=== PATIENT | female | born 1940 | race Hispanic/Latino ===

== ENCOUNTER 2024-01-18 11:04 | Inpatient (IN) | payer MEDICARE, OTHER ==
[2024-01-18 12:16] LABS: #Basophils 0.01 10x3/uL (0.0-0.2); #Eosinophils 0.01 10x3/uL (0.0-0.5); #Monocytes 0.68 10x3/uL (0.0-1.1); #Neutrophils 11.63 10x3/uL (1.5-8.4); %Basophils 0.1 % (0.0-2.0); %Eosinophils 0.1 % (0.0-6.0); %Lymphocytes 5.3 % (18.0-47.0); %Monocytes 5.2 % (0.0-10.0); %Neutrophils 88.8 % (40.0-75.0); Hematocrit 41.8 % (34.9-44.5); Hemoglobin 13.7 g/dL (12.0-15.5); Mean Corpuscular HGB CONC 32.8 g/dL (32.0-36.0); Mean Corpuscular Hemoglobin 30.2 pg (27.0-33.0); Mean Corpuscular Volume 92.1 fL (81.6-98.3); Mean Platelet Volume 11.7 fL (7.4-10.4); Platelet Count 183 10x3/uL (150-450); RBC Distribution Width 13.2 % (11.5-14.5); Red Blood Cell (RBC) Count 4.54 10x6/uL (3.90-5.03); White Blood Cell (WBC) Count 13.1 10x3/uL (3.5-10.5)
[2024-01-18 12:19] LABS: ALT (SGPT) 60 U/L (8-55); AST (SGOT) 56 U/L (5-34); Albumin 3.7 g/dL (3.4-4.8); Alkaline Phosphatase 79 U/L (40-110); Anion Gap 18 mmol/L (10-20); BUN (Urea Nitrogen) 24 mg/dL (9.8-20.1); Bilirubin, Total 0.5 mg/dL (0.2-1.2); Calc. Creatinine Clearance 0 mL/min (70-130); Calcium 8.9 mg/dL (7.8-10.44); Carbon Dioxide 18 mmol/L (23-31); Chloride 106 mmol/L (98-107); Estimated GFR 71; Glucose 306 mg/dL (83-110); Lipase 6 U/L (8-78); Magnesium 1.3 mg/dL (1.6-2.6); Potassium 3.7 mmol/L (3.5-5.1); Protein, Total 6.7 g/dL (5.8-8.1); Sodium 138 mmol/L (136-145)
[2024-01-18] MEDS ORDERED: Magnesium 2 GM/50 ML BAG (IN WATER) ONE (12:39)
[2024-01-18] MEDS ORDERED: Iopamidol 300 61% 100 ML VIAL FS ONE (14:50)
[2024-01-18] MEDS ORDERED: Glucagon 1 MG/ML KIT IM PRN (15:27)
[2024-01-18] MEDS ORDERED: Dextrose 5% in Water 1,000 ML IV PRN (15:27)
[2024-01-18] MEDS ORDERED: Ondansetron PF 4 MG/2 ML Vial IVP PRN (15:27)
[2024-01-18] MEDS ORDERED: Dextrose 50% Abboject 50 ML SYRINGE SLOW IVP PRN (15:27)
[2024-01-18] MEDS: Insulin Lispro 100 UNIT/ML 10 ML VIAL SC PRN (18:11)
[2024-01-18 18:30] VITALS: BMI 23.6
[2024-01-18] MEDS: Donepezil HCl 5 MG TAB PO SCH (21:57)
[2024-01-18] MEDS: Oseltamivir 6 MG/ML ORAL SUSP PO SCH (22:36)
[2024-01-19 04:26] LABS: #Basophils 0.01 10x3/uL (0.0-0.2); #Eosinophils 0.02 10x3/uL (0.0-0.5); #Monocytes 0.73 10x3/uL (0.0-1.1); %Basophils 0.1 % (0.0-2.0); %Eosinophils 0.3 % (0.0-6.0); %Lymphocytes 20.3 % (18.0-47.0); %Monocytes 10.8 % (0.0-10.0); %Neutrophils 68.1 % (40.0-75.0); Hematocrit 39.8 % (34.9-44.5); Hemoglobin 13.4 g/dL (12.0-15.5); Mean Corpuscular HGB CONC 33.7 g/dL (32.0-36.0); Mean Corpuscular Hemoglobin 30.9 pg (27.0-33.0); Mean Corpuscular Volume 91.7 fL (81.6-98.3); Mean Platelet Volume 11.7 fL (7.4-10.4); Platelet Count 179 10x3/uL (150-450); RBC Distribution Width 13.3 % (11.5-14.5); Red Blood Cell (RBC) Count 4.34 10x6/uL (3.90-5.03); White Blood Cell (WBC) Count 6.8 10x3/uL (3.5-10.5)
[2024-01-19] MEDS: Oseltamivir 6 MG/ML ORAL SUSP PO SCH (04:33)
[2024-01-19 04:37] LABS: Anion Gap 16 mmol/L (10-20); BUN (Urea Nitrogen) 17 mg/dL (9.8-20.1); Calc. Creatinine Clearance 60 mL/min (70-130); Calcium 8.1 mg/dL (7.8-10.44); Carbon Dioxide 18 mmol/L (23-31); Chloride 109 mmol/L (98-107); Estimated GFR 87; Glucose 226 mg/dL (83-110); Potassium 3.8 mmol/L (3.5-5.1); Sodium 139 mmol/L (136-145)
[2024-01-19] MEDS: Oseltamivir 75 MG CAP PO SCH (05:19)
[2024-01-19] MEDS: Alogliptin 25 MG TAB PO SCH (09:10)
[2024-01-19] MEDS: Magnesium 2 GM/50 ML(in water) 2 GM in Premix 1 BAG IVPB SCH (09:10)
[2024-01-19] MEDS: PARoxetine 20 MG TAB PO SCH (09:11)
[2024-01-19] MEDS: glipiZIDE 5 MG TAB PO SCH (09:11)
[2024-01-19] MEDS: Memantine 10 MG TAB PO SCH (09:12)
[2024-01-19] MEDS: Enoxaparin 40 MG (0.4 mL) SYRINGE SC SCH (09:12)
[2024-01-19] MEDS: metFORMIN 500 MG TAB PO SCH (09:12)
[2024-01-19] MEDS: Acetaminophen 325 MG TAB PO PRN (09:19)
[2024-01-19 14:46] LABS: ALV-art Gradient 69.965 mmHg (0-20); Actual Bicarbonate (HCO3a) 22.5 mEq/L (22-28); Analyzer IN Cardio CS ER; Base Excess (BEa) -1.4 mEq/L (-2.0 to +3.0); CO2 Tension 35.5 mmHg (35.0-45.0); Calcium, Ionized (arterial) 1.09 mmol/L (1.12-1.30); Carboxyhemoglobin (COHb) 0.3 gm% (0.0-3.0); Hematocrit-ABG 41 % (36.0-47.0); Hemoglobin (Hb) 14.1 g/dL (12.0-16.0); O2 Tension (PaO2), arterial 85.3 mmHg (> 60.0); Potassium - ABG Lab 3.83 mmol/L (3.70-5.30); Puncture Site Right Brachial art
[2024-01-19] MEDS: Sodium Chloride 0.9% 500 ML IV SCH (15:49)
[2024-01-19] MEDS ORDERED: Amitriptyline HCl 25 MG TAB PO SCH (21:00)
[2024-01-19] MEDS ORDERED: Donepezil HCl 5 MG TAB PO SCH (21:00)
[2024-01-19] MEDS ORDERED: Bisacodyl 10 MG SUPP PR PRN (21:47)
[2024-01-19 22:30] LABS: Bilirubin Neg (Negative); Blood, Urine Negative (Negative); Clarity Clear (Clear); Glucose, Urine (Dipstick) 250 mg/dL (Negative); Ketone, Urine Negative (Negative); Leukocyte Negative (Negative); Nitrite Negative (Negative); Protein, Urine (Dipstick) 30 mg/dl (Neg-Trace); Urobilinogen Normal mg/dL (Less than 2)
[2024-01-19] MEDS: Lactated Ringer's 1,000 ML IV SCH (22:50)
[2024-01-19 22:57] LABS: Bacteria/HPF None Seen HPF (None Seen); Mucous/LPF 1+ LPF (<2+); RBC/HPF None Seen HPF (0-3); Squamous Epithelial 0-3 HPF (0-3); WBC/HPF 0-3 HPF (0-3)
[2024-01-20] MEDS: Atorvastatin Calcium 20 MG TAB PO SCH (00:38)
[2024-01-20] MEDS: Acetaminophen 500 MG TAB PO SCH (00:40)
[2024-01-20] MEDS: Senokot S 8.6-50 MG TAB PO SCH (00:41)
[2024-01-20 04:19] LABS: #Basophils 0.01 10x3/uL (0.0-0.2); #Eosinophils 0.12 10x3/uL (0.0-0.5); #Monocytes 0.41 10x3/uL (0.0-1.1); #Neutrophils 3.63 10x3/uL (1.5-8.4); %Basophils 0.2 % (0.0-2.0); %Lymphocytes 30.3 % (18.0-47.0); %Monocytes 6.8 % (0.0-10.0); %Neutrophils 60.2 % (40.0-75.0); Mean Corpuscular HGB CONC 33.3 g/dL (32.0-36.0); Mean Corpuscular Hemoglobin 31.1 pg (27.0-33.0); Mean Corpuscular Volume 93.3 fL (81.6-98.3); Mean Platelet Volume 11.3 fL (7.4-10.4); Platelet Count 141 10x3/uL (150-450); RBC Distribution Width 13.5 % (11.5-14.5); Red Blood Cell (RBC) Count 3.86 10x6/uL (3.90-5.03)
[2024-01-20 04:32] LABS: Anion Gap 12 mmol/L (10-20); BUN (Urea Nitrogen) 10 mg/dL (9.8-20.1); Calc. Creatinine Clearance 66 mL/min (70-130); Calcium 7.5 mg/dL (7.8-10.44); Carbon Dioxide 20 mmol/L (23-31); Chloride 110 mmol/L (98-107); Estimated GFR 89; Glucose 165 mg/dL (83-110); Magnesium 2.2 mg/dL (1.6-2.6); Potassium 3.7 mmol/L (3.5-5.1); Sodium 138 mmol/L (136-145)
[2024-01-20] MEDS: Amitriptyline HCl 25 MG TAB PO SCH (07:53)
[2024-01-20] MEDS: Polyethylene Glycol 3350 17 GM Packet PO SCH (10:10)
[2024-01-20 20:02] LABS: Hemoglobin A1c 7.2 % (4.0-6.0)
[2024-01-21] MEDS: Amitriptyline HCl 25 MG TAB PO PRN (02:44)
[2024-01-21 03:52] LABS: #Basophils 0.01 10x3/uL (0.0-0.2); #Neutrophils 6.86 10x3/uL (1.5-8.4); %Basophils 0.1 % (0.0-2.0); %Lymphocytes 20.3 % (18.0-47.0); %Monocytes 6.3 % (0.0-10.0); Hematocrit 38.6 % (34.9-44.5); Hemoglobin 12.6 g/dL (12.0-15.5); Mean Corpuscular HGB CONC 32.6 g/dL (32.0-36.0); Mean Corpuscular Hemoglobin 30.6 pg (27.0-33.0); Mean Corpuscular Volume 93.7 fL (81.6-98.3); Mean Platelet Volume 11.1 fL (7.4-10.4); Platelet Count 158 10x3/uL (150-450); RBC Distribution Width 13.4 % (11.5-14.5); Red Blood Cell (RBC) Count 4.12 10x6/uL (3.90-5.03); White Blood Cell (WBC) Count 9.5 10x3/uL (3.5-10.5)
[2024-01-21 04:05] LABS: Anion Gap 9 mmol/L (10-20); BUN (Urea Nitrogen) 7 mg/dL (9.8-20.1); Calc. Creatinine Clearance 62 mL/min (70-130); Calcium 8.4 mg/dL (7.8-10.44); Carbon Dioxide 20 mmol/L (23-31); Chloride 113 mmol/L (98-107); Estimated GFR 87; Glucose 181 mg/dL (83-110); Sodium 138 mmol/L (136-145)
[2024-01-21 12:42] VITALS: BP 133/88; TEMP 98.1
== END 2024-01-21 13:55 | disposition home or self-care (01) | DRG 865 ==
LOC: CSHERS 11:04 → CSHERHOLD 15:17 → CSHTELE 18:09
PROVIDERS: ADMIT Internal Medicine; ATTEND Hospitalist
PROC: 4A133R1 Monitoring of Arterial Saturation, Peripheral, Percutaneous Approach (ICD-10-PCS; principal; 2024-01-19)
DX: J10.2 Influenza due to other identified influenza virus with gastrointestinal manifestations (principal); G93.41 Metabolic encephalopathy; J10.00 Influenza due to other identified influenza virus with unspecified type of pneumonia; J96.01 Acute respiratory failure with hypoxia; E11.9 Type 2 diabetes mellitus without complications; F03.90 Unspecified dementia, unspecified severity, without behavioral disturbance, psychotic disturbance, mood disturbance, and anxiety; I10 Essential (primary) hypertension; E78.5 Hyperlipidemia, unspecified; K52.9 Noninfective gastroenteritis and colitis, unspecified; E83.42 Hypomagnesemia; Z90.49 Acquired absence of other specified parts of digestive tract; Z90.710 Acquired absence of both cervix and uterus
CPT/HCPCS: 36415; 36416; 36600; 70450; 71045; 74177; 80048; 80053; 81001; 82140; 82805; 83036; 83605; 83690; 83735; 84145; 84443; 85025; 87428; 93005; 93010; 94760; 94762; 96374; J1650; J1815; J3475; J7030; J7120; Q9967